=== PATIENT | female | born 1970 | race Hispanic/Latino ===

== ENCOUNTER 2018-11-05 08:23 | Outpatient (CLI) | payer BC ==
--- NOTE | 2018-11-05 10:39 | CT ---
CONTRAST ENHANCED CT IMAGES ABDOMEN AND PELVIS: HISTORY: History of diverticulitis. FINDINGS: Contrast-enhanced CT of the abdomen and pelvis is obtained. There is an area of airspace opacity in the posterior aspect of the left upper lobe axial image #6. The lung bases are otherwise unremarkabl e. The liver and spleen are unremarkable. The gallbladder and pancreas are unremarkable. Adrenal gland s are unremarkable. The kidneys are unremarkable. No evidence of periaortic lymphadenopathy seen. Normal flow is seen in the SMA and SMV. Small umbilical hernia is seen. There is a moderate degree of descending and sigmoid colonic diverticulosis without evidence of diver ticulitis. The small bowel is unremarkable. There are L5-S1 degenerative disk changes seen. No evidence of renal parenchymal lesions seen. IMPRESSION: 1. Small umbilical hernia. 2. Colonic diverticulosis. No definite evidence of diverticulitis is seen. POS: [facility]
[2018-11-05] MEDS ORDERED: ISOVUE-370 76%-LOCM 1 ML ONE (12:42)
== END 2018-11-05 08:24 | disposition home or self-care (01) ==
LOC: BICCT 08:23
PROVIDERS: ATTEND Family Medicine
DX: K57.92 Diverticulitis of intestine, part unspecified, without perforation or abscess without bleeding (principal); K57.30 Diverticulosis of large intestine without perforation or abscess without bleeding; K42.9 Umbilical hernia without obstruction or gangrene
CPT/HCPCS: 74177; Q9966

== ENCOUNTER 2018-11-11 09:22 | Outpatient (CLI) | payer BC ==
--- NOTE | 2018-11-11 18:22 | MMO ---
Bilateral MAMMO Bilat Screen [facility]. CLINICAL HISTORY: Patient is 48 years old and is seen for screening. The patient has no family history of breast cancer. The patient has no personal history of cancer. VIEWS: The views performed were: bilateral craniocaudal with tomosynthesis and bilateral mediolateral oblique with tomosynthesis. FILMS COMPARED: The present examination has been compared to prior imaging studies performed at [facility] on 02/06/2010, 02/07/2011, 04/01/2012, 04/13/2013, 04/14/2014 and 08/01/2015. MAMMOGRAM FINDINGS: There are scattered fibroglandular densities. There are no suspicious masses, calcifications or areas of architectural distortion. IMPRESSION: THERE IS NO MAMMOGRAPHIC EVIDENCE OF MALIGNANCY. A ROUTINE FOLLOW-UP MAMMOGRAM IN 1 YEAR IS RECOMMENDED. THE RESULTS OF THIS EXAM WERE SENT TO THE PATIENT. ACR BI-RADS Category 1 - Negative MAMMOGRAPHY NOTE: 1. A negative mammogram report should not delay a biopsy if a dominant of clinically suspicious mass is present. 2. Approximately 10% to 15% of breast cancers are not detected by mammography. 3. Adenosis and dense breasts may obscure an underlying neoplasm.
== END 2018-11-11 09:23 | disposition home or self-care (01) ==
LOC: BICMAMMO 09:22
PROVIDERS: ATTEND Family Medicine
DX: Z12.31 Encounter for screening mammogram for malignant neoplasm of breast (principal)
CPT/HCPCS: 77063; 77067

== ENCOUNTER 2018-12-22 11:06 | Outpatient (CLI) | payer BC ==
--- NOTE | 2018-12-22 12:00 | RAD ---
EXAM: Chest PA and lateral: HISTORY: Upper respiratory infection COMPARISON: None FINDINGS: Heart: Normal size Aorta: Unremarkable Pulmonary vessels: Normal Costophrenic angles: Costophrenic angles are clear. Lungs: No consolidation or masses. Pneumothorax: No pneumothorax Osseous structures: No osseous abnormalities IMPRESSION: No acute cardiopulmonary process.
== END 2018-12-22 11:07 | disposition home or self-care (01) ==
LOC: BICRAD 11:06
PROVIDERS: ATTEND Family Medicine
DX: J06.9 Acute upper respiratory infection, unspecified (principal)
CPT/HCPCS: 71046

== ENCOUNTER 2019-01-12 10:10 | Outpatient (CLI) | payer BC | END 2019-01-12 10:11 | disposition home or self-care (01) | LOC: CTENTCT 10:10 | PROVIDERS: ATTEND Specialist | DX: J32.9 Chronic sinusitis, unspecified (principal) | CPT/HCPCS: 70486 ==

== ENCOUNTER 2019-04-07 11:34 | Day surgery (SDC) | payer BC ==
[2019-04-06 08:44] VITALS: BMI 31.4
[2019-04-07] MEDS ORDERED: Oxymetazoline HCl 0.05% ( 15 ML ) ONE ×2 (13:29→14:10)
[2019-04-07] MEDS ORDERED: EPINEPHrine 1 MG/ML AMP ONE ×2 (14:10→14:11)
[2019-04-07] MEDS ORDERED: Lidocaine 1% w/Epinephrine 1:100K 20 ML VIAL ONE (14:26)
[2019-04-07] MEDS ORDERED: Fentanyl 100 MCG/2 ML VIAL ONE (14:39)
[2019-04-07] MEDS ORDERED: Midazolam HCl 2 mg/2 ml Vial ONE (14:39)
[2019-04-07] MEDS ORDERED: methylPREDNISolone Acetate 40 mg/ml Vial ONE (15:03)
[2019-04-07] MEDS ORDERED: Hydrocodone-Acetamin 15 ML UDCUP ONE (16:49)
--- NOTE | 2019-04-08 09:39 | OP ---
DATE OF PROCEDURE: 04/07/2019 PREOPERATIVE DIAGNOSES: 1. Chronic sinusitis. 2. Recurrent sinusitis. POSTOPERATIVE DIAGNOSES: 1. Chronic sinusitis. 2. Recurrent sinusitis. PROCEDURES PERFORMED: 1. Bilateral nasal endoscopy with maxillary antrostomy. 2. Bilateral nasal endoscopy with total ethmoidectomy. 3. Bilateral nasal endoscopy with frontal sinusotomy. 4. Bilateral nasal endoscopy with submucosal resection of inferior turbinates. PROCEDURE IN DETAIL: BILATERAL NASAL ENDOSCOPY WITH MAXILLARY ANTROSTOMY: The uncinate was then identified and the extent of the uncinate was appreciated by out-fracturing the uncinate with the ball-tip probe. We then used the sickle blade to disarticulate the uncinate from the lateral nasal wall. This was then removed with straight biting and upbiting punches with the remaining shrouds of mucosa and bony septum removed with the micro-debrider. The natural os of the maxillary sinus was then identified and enlarged with the maxillary punches and back biting forceps. BILATERAL NASAL ENDOSCOPY WITH TOTAL ETHMOIDECTOMY: The anterior face of the ethmoid bulla was entered and with the micro-debrider, dissection continued posteriorly to the ground lamella. The limits of dissection included the insertion of the middle turbinate, medial orbital wall, and base of skull. We similarly identified the frontal recess and removed shrouds of bone and debris in that region to obtain patency into the agger nasi region and frontal recess. We then entered the ground lamella and its anteroinferior aspect and proceeded posteriorly, opening the posterior ethmoid air-cell system. Again, the limits of dissection included the base of skull and medial orbital wall. BILATERAL NASAL ENDOSCOPY WITH FRONTAL SINUSOTOMY: Following the ethmoidectomy, we then turned our attention to the frontal nasal recess. The agger nasi cells were addressed and the frontal recess was exposed. The natural opening to the frontal sinus was identified. At this point, any obstructing shrouds of mucosa and bony fragments were removed with a curved microdebrider. The wound was then examined and found to be free of any obstructing debris. We then turned our attention to the contralateral side and performed a similar procedure again under endoscopic visualization using a 45-degree scope. We were able to visualize the frontal recess. Obstructing shrouds of mucosa and bone were removed with a microdebrider. The natural os of frontal sinus was identified and enlarged and irrigated. At this point, the frontal sinusotomy was completed and we turned to the next area of concern. BILATERAL NASAL ENDOSCOPY WITH SUBMUCOSAL RESECTION OF INFERIOR TURBINATES: After consent was obtained, the patient was identified, brought to the operating room, and placed on the operating room table in the supine position. Consent was obtained, notifying the patient of the possibility of additional infections, bleeding, brain injury, and eye/orbital injury. The patient was placed on the operating room table, and general endotracheal anesthesia and intravenous access was obtained. The patient was then positioned, prepped and draped for endoscopic sinus surgery. Nasal preparation included trimming nasal vestibular hairs and spraying in topical Afrin. We then placed Afrin topical solution on nasal pledgets and strategically located them intranasally. The perinasal mucosa was injected with 1% lidocaine with 1:100,000 epinephrine in the submucoperichondrial plane of the septum, lateral nasal wall, and anterior to the uncinate. The patient was then prepped and draped in a sterile fashion and positioned for endoscopic sinus surgery. With the 0-degree endoscope, the patient underwent systematic nasal endoscopy. There were no suspicious internasal masses or lesions identified. We then focused our attention to the osteomeatal complex region under the middle turbinate. The inferior turbinates were visualized with a 0 degree endoscope and outfractured with a [place] elevator. The inferior medial aspect was cauterized with the electrocautery. Hemostasis was obtained . After adequate airway was established, we turned our attention to the contralateral side and used a similar procedure. Again, a [place] elevator was used to outfracture inferior turbinates under endoscopic visualization. With a suction cautery, the free inferior medial aspect was cauterized under direct visualization along the length of the inferior turbinate. At this point, we then turned our attention to the contralateral side and proceeded with endoscopic sinus surgery. At the completion of the case, Rice keel splints were placed in the ethmoid cavities after the ethmoidectomy. There were no complications. The patient tolerated the procedure well and was discharged to the recovery room in stable condition prior to return to the preoperative day stay with ultimate discharge home. Prescriptions for pain medication and antibiotics were provided. The patient received intramuscular Depo-Medrol during the case. Job ID: [id number]
== END 2019-04-07 18:09 | disposition home or self-care (01) ==
LOC: SDC 11:34
PROVIDERS: ATTEND Specialist
DX: J32.8 Other chronic sinusitis (principal); J34.3 Hypertrophy of nasal turbinates; J34.89 Other specified disorders of nose and nasal sinuses; J30.1 Allergic rhinitis due to pollen; J30.81 Allergic rhinitis due to animal (cat) (dog) hair and dander; E78.00 Pure hypercholesterolemia, unspecified; E11.9 Type 2 diabetes mellitus without complications; D64.9 Anemia, unspecified; Z79.84 Long term (current) use of oral hypoglycemic drugs; Z79.899 Other long term (current) drug therapy
CPT/HCPCS: 85014; J0171; J1030; J2001; J2250; J3010

== ENCOUNTER 2020-07-12 15:22 | Outpatient (CLI) | payer BC ==
--- NOTE | 2020-07-12 16:38 | MMO ---
Bilateral MAMMO Bilat Screen [facility]. CLINICAL HISTORY: Patient is 50 years old and is seen for screening. The patient has no family history of breast cancer. The patient has no personal history of cancer. VIEWS: The views performed were: bilateral craniocaudal with tomosynthesis and bilateral mediolateral oblique with tomosynthesis. FILMS COMPARED: The present examination has been compared to prior imaging studies performed at [facility] on 04/14/2014, 08/01/2015 and 11/11/2018. This study has been interpreted with the assistance of computer-aided detection. MAMMOGRAM FINDINGS: There are scattered fibroglandular densities. There are no suspicious masses, suspicious calcifications, or new areas of architectural distortion. IMPRESSION: THERE IS NO MAMMOGRAPHIC EVIDENCE OF MALIGNANCY. A ROUTINE FOLLOW-UP MAMMOGRAM IN 1 YEAR IS RECOMMENDED. THE RESULTS OF THIS EXAM WERE SENT TO THE PATIENT. ACR BI-RADS Category 1 - Negative MAMMOGRAPHY NOTE: 1. A negative mammogram report should not delay a biopsy if a dominant of clinically suspicious mass is present. 2. Approximately 10% to 15% of breast cancers are not detected by mammography. 3. Adenosis and dense breasts may obscure an underlying neoplasm. Reported by: DEAN HENDRIX MD Electonically Signed: [id number]
== END 2020-07-12 15:23 | disposition home or self-care (01) ==
LOC: BICMAMMO 15:22
PROVIDERS: ATTEND Family Medicine
DX: Z12.31 Encounter for screening mammogram for malignant neoplasm of breast (principal)
CPT/HCPCS: 77063; 77067

== ENCOUNTER 2021-01-29 08:40 | Emergency (ER) | payer OTHER, BC ==
[2021-01-29] MEDS ORDERED: Dexamethasone 10 MG/ML VIAL ONE (08:58)
[2021-01-29] MEDS ORDERED: Ketorolac Tromethamine 30 MG/ML VIAL ONE (08:58)
[2021-01-29] MEDS ORDERED: Acetaminophen 500 MG TAB ONE (08:58)
== END 2021-01-29 10:25 | disposition home or self-care (01) ==
LOC: ERS 08:40
DX: S16.1XXA Strain of muscle, fascia and tendon at neck level, initial encounter (principal); S13.9XXA Sprain of joints and ligaments of unspecified parts of neck, initial encounter; M62.830 Muscle spasm of back; V43.92XA Unspecified car occupant injured in collision with other type car in traffic accident, initial encounter; E11.9 Type 2 diabetes mellitus without complications; E78.5 Hyperlipidemia, unspecified
CPT/HCPCS: 71045; 72050; 96372; J1100; J1885

== ENCOUNTER 2022-09-15 09:49 | Outpatient (CLI) | payer BC | END 2022-09-15 09:50 | disposition home or self-care (01) | LOC: BICMAMMO 09:49 | PROVIDERS: ATTEND Family Medicine | DX: Z12.31 Encounter for screening mammogram for malignant neoplasm of breast (principal) | CPT/HCPCS: 77063; 77067 ==